=== PATIENT | male | born 1950 | race Caucasian/White ===

== ENCOUNTER 2019-06-12 15:00 | Outpatient (CLI) | payer MEDICARE, BC | END 2019-06-12 15:01 | disposition home or self-care (01) | LOC: SLEEPLAB 15:00 | PROVIDERS: ATTEND Internal Medicine | DX: G47.33 Obstructive sleep apnea (adult) (pediatric) (principal); E66.9 Obesity, unspecified; K21.9 Gastro-esophageal reflux disease without esophagitis; I10 Essential (primary) hypertension | CPT/HCPCS: 95806 ==